=== PATIENT | male | born 2000 | race Caucasian/White ===

== ENCOUNTER 2021-01-20 12:29 | Outpatient (REF) | payer OTHER, SELFPAY | END 2021-01-20 12:30 | disposition home or self-care (01) | LOC: HO.LAB 12:29 | PROVIDERS: Visit Provider Nurse Practitioner Family | DX: J32.9 Chronic sinusitis, unspecified (principal); Z20.822 Contact with and (suspected) exposure to COVID-19 | CPT/HCPCS: U0003; U0005 ==

== ENCOUNTER → 2023-01-13 14:56 | Outpatient (BNVA) | payer SELFPAY | PROVIDERS: PCP Family Medicine; Visit Provider Internal Medicine | DX: Z02.79 Encounter for issue of other medical certificate (principal) ==

== ENCOUNTER 2023-04-04 14:49 | Outpatient (AMB) | payer OTHER, SELFPAY ==
[2023-04-04 14:52] VITALS: BP 120/70; PULSE 69; O2SAT 99; BMI 27.3
--- NOTE | 2023-04-04 14:52 | A.OFFPC_ITS ---
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 Nonsmoker, EtOH Occassional. No Drugs PFSH Medical History (Updated 04/04/23 @ 15:06 by Kaykay Hutchinson CMA) Left elbow fracture Left wrist injury Right wrist fracture Surgical History No pertinent past surgical history Family History (Updated 04/04/23 @ 14:59 by Kaykay Hutchinson CMA) Father No problems noted. Mother No problems noted. 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 1. Little interest or pleasure in doing things: not at all 2. Feeling down, depressed, or hopeless: not at all 3. Trouble falling or staying asleep, or sleeping too much: not at all 4. Feeling tired or having little energy: not at all 5. Poor appetite or overeating: not at all 6. Feeling bad about yourself - or that you are a failure or have let yourself or your family down: not at all 7. Trouble concentrating on things, such as reading the newspaper or watching television: not at all 8. Moving or speaking so slowly that other people could have noticed. Or the opposite - being so fidgety or restless that you have been moving around a lot more than usual: not at all 9. Thoughts that you would be better off or of hurting yourself in some way: not at all Total score: 0 Source: Developed by Drs. Rudolph Sandy, Rosa Silva, Claude Veronica and colleagues, with an educational kourtney from [employer]. Thrive Questionnaire Date Thrive assessed: 12/25/21 I am a: Patient What is your living situation today?: I have a steady place to live Within the past 12 months, did the food you bought not last and you didn't have the money to get more?: Never true Within the past 12 months, did you worry whether your food would run out before you got money to buy more?: Never true Do you have trouble paying for medicines?: No Do you have trouble getting transportation to medical appointments?: No Do you have trouble paying your heating and electricity bill?: No Do you have trouble taking care of your child, family member or friend?: No Do you have trouble with day-to-day activities such as bathing, preparing meals, shopping, managing finances, etc.?: No Are you currently unemployed and looking for a job?: No Are you interested in more education?: No AUDIT C Alcohol Use Questionnaire (AUDIT-C) 1. How often do you have a drink containing alcohol?: Monthly or less 2. How many drinks containing alcohol do you have on a typical day when you are drinking?: 1 or 2 3. How often do you have six or more drinks on one occasion?: Never Total Score: 1 AXEL-7 AMB Questionnaire AXEL-7 Date AXEL - 7 assessed: 04/04/23 Feeling nervous, anxious, or on edge: 0 = Not at all Not being able to stop or control worryin = Not at all Worrying too much about different things: 0 = Not at all Trouble relaxin = Not at all Being so restless that it is hard to sit still: 0 = Not at all Becoming easily annoyed or irritable: 0 = Not at all Feeling afraid as if something awful might happen: 0 = Not at all Total AXEL-7 score (0-4 normal; 5-9 mild; 10-14 moderate; 15-21 severe): 0 Source: Developed by Drs. Rudolph Sandy, Rosa Silva, Claude Veronica and colleagues, with an educational kourtney from [employer]. Review of Systems Const Denies chills, Denies fatigue, Denies fever(s), Denies headache(s) and Denies weakness Eyes Denies change in vision ENT Denies dizziness, Denies headache(s), Denies hearing loss, Denies nasal congestion, Denies sinus pain, Denies sinus pressure and Denies sore throat Card Denies chest pain, Denies lightheadedness, Denies dyspnea and Denies other (palpitations) Resp Denies cough, Denies dyspnea and Denies wheezing GI Denies abdominal pain, Denies melena, Denies hematochezia, Denies change in bowel habits, Denies dyspepsia and Denies nausea Denies hematuria and Denies dysuria Musc Denies abnormal gait, Denies myalgias, Denies arthralgias, Denies numbness and Denies tingling Skin/Breast Denies rash, Denies unusual bruising and Denies wounds Neuro Denies abnormal gait, Denies dizziness, Denies headache(s), Denies memory loss, Denies numbness, Denies Sensory deficit (Neuro), Denies tingling and Denies weakness Psych Denies anxiety, Denies depression and Denies memory loss Endo Denies cold intolerance, Denies fatigue, Denies heat intolerance, Denies polydipsia and Denies polyuria [place]iciano/Lymph Denies easy bleeding and Denies easy bruising Aller/Immun Denies wheezing Physical exam (Primary Care) Vital Signs: Last Vital Signs Pulse 69 04/04/23 14:52 BP 120/70 04/04/23 14:52 Pulse Ox 99 04/04/23 14:52 Oxygen Delivery Method Room Air 04/04/23 14:52 BMI result Body Mass Index 27.3 Tobacco/Smoking Status: Tobacco use Status Tobacco use date assessed 04/04/23 04/04/23 15:09 Patient Tobacco Use Status Never used Tobacco 04/04/23 15:09 e-Cigarette/Vaping Use Never Used 04/04/23 15:09 PHQ-9: PHQ-9 Score PHQ-9: Total score 0 04/04/23 15:09 Thrive Assessment: Date of Thrive Assessment Date Thrive assessed 12/25/21 04/04/23 15:09 Const General: no acute distress, well developed, alert and awake Nutritional Appearance: well nourished Orientation/consciousness: patient oriented x3 HENMT Head: Yes normocephalic and Yes atraumatic Ears: hearing grossly normal bilaterally and TM's normal bilaterally General nose exam: Normal external nose present and Normal nares present Mouth: Normal oral and palatal mucosa present and moist mucous membranes Teeth and gingiva: dentition normal Throat: Yes posterior oropharynx normal Eyes Pupils: Equal, round and reactive pupils present and Pupil accommodation reflex normal EOM: EOMs intact bilaterally Neck Neck: Yes normal visual inspection, Yes no lymphadenopathy and Yes trachea midline Thyroid: Thyroid normal Carotids: no bruits Lymphatic: no lymphadenopathy noted Chest Chest palpation & inspection: normal inspection of the chest Resp Effort & Inspection: normal respiratory effort Auscultation: clear to auscultation bilaterally Cardio Rate: regular rate Rhythm: regular rhythm Heart sounds: S1 normal heart sound present, S2 normal heart sound present, no gallops, no murmurs and no rubs Bruits: no abdominal aortic bruits and no carotid bruits GI Palpation (GI): No Abdominal aortic bruit present, Soft to palpation, nontender, No hepatosplenomegaly present and No Rebound tenderness present Auscultation: normal bowel sounds General: Yes no CVA tenderness Back/Spine/Pelvis Back: no CVA tenderness Cervical Spine: cervical ROM normal and No Cervical spine tenderness Thoracic/Lumbar Spine: thoraco-lumbar ROM normal, No pain with thoraco-lumbar ROM, No thoracic spinal tenderness and No lumbar spinal tenderness Skin Lesions: no lesions Rashes: no rashes Trauma: no lacerations or abrasions Wounds: no wounds Nails: normal Neuro General: patient oriented x3, gait normal and CN's II-XI intact bilaterally Cranial nerves: Yes Equal, round and reactive pupils present Cognition (Neuro): normal cognition Gait exam (Neuro): Normal gait present Motor exam (neuro): 5/5 motor strength present throughout Sensory Exam: No Sensory deficit (Neuro) Deep tendon reflexes (DTR's): Right patellar reflex intensity grade: 2+ and Left patellar reflex intensity grade: 2+ Extrem General: Yes normal to inspection and No edema Psych Appearance: grossly normal Affect: normal affect Attitude: cooperative Thought process: Normal thought process present Assessment and Plan Assessment & Plan (1) Annual physical exam: Code(s): Z00.00 - Encounter for general adult medical examination without abnormal findings Plan: 23-year-old?male?presents?for?complete?physical?exam Encouraged?healthy?diet?with?active?lifestyle?and?plenty?of?exercise Exam?all?within?normal?limits?today He?can?get?his?labs?drawn?and?we?can?follow-up?by?telephone?in?a?few?weeks Coding Level of Care Code Est Pt Prev Care 18-39y(75713) Diagnoses Annual physical exam Z00.00
== END 2023-04-04 16:09 | disposition home or self-care (01) ==
PROVIDERS: PCP Family Medicine; Visit Provider Family Medicine
DX: Z00.00 Encounter for general adult medical examination without abnormal findings (principal)
CPT/HCPCS: 99395

== ENCOUNTER 2023-04-27 07:14 | Outpatient (REF) | payer OTHER, SELFPAY ==
[2023-04-27 11:39] LABS: Appearance Urine Clear; Color Urine Yellow; Glucose Urine UA Negative (Negative); Leukocyte Esterase Urine Negative (Negative); Nitrite Urine Negative (Negative); PH 6.5 (5.0-9.0); Specific Gravity - Urine 1.025 (1.005-1.025); Urine Blood Negative (Negative); Urine Ketones Negative (Negative); Urine Protein Negative (Neg-Trace)
[2023-04-27 12:42] LABS: Creatinine Urine 160.43 mg/dL; Microalbum/Creatinine Ratio Ur 9.9 ug/mg cr (<30)
[2023-04-27 12:43] LABS: HBc Num1 0.15 S/CO (0.00-0.79); HBsAGNum1 0.53 S/CO (0.00-0.99); HIV AB/AG Nonreactive (Nonreactive); HIV Num 1 0.04 S/CO (0.00-0.99); Hepatitis B Core Antibody Nonreactive (Nonreactive); Hepatitis B Surface Antigen Negative (Negative); ~HepC Num1 0.06 S/CO (0.00-0.79); ~Hepatitis B Surface Antibody NONREACTIVE (Nonreactive); ~Hepatitis C Antibody Nonreactive (Nonreactive)
[2023-04-27 12:45] LABS: TSH reflex Free T4 1.63 uIU/mL (0.32-4.0)
[2023-04-27 12:56] LABS: Anion Gap 16 (12-20)
[2023-04-27 13:02] LABS: Alanine Aminotransferase 18 U/L (0-40); Albumin Level 4.2 g/dL (3.5-5.0); Alkaline Phosphatase 80 U/L (39-117); Aspartate Amino Transferase 23 U/L (5-37); Bilirubin Total 0.6 mg/dL (0.0-1.0); Blood Urea Nitrogen 18 mg/dL (9-16); Calcium 9.4 mg/dL (8.4-10.2); Carbon Dioxide 21 mmol/L (22-29); Chloride 106 mmol/L (96-108); Cholesterol 167 mg/dL (<200); Estimated Glomerular Filt Rate > 60; Glucose Fasting 87 mg/dL (60-99); HDL Cholesterol 39 mg/dL (>40); LDL Cholesterol Calculated 119 mg/dL (<100); Potassium 4.7 mmol/L (3.3-5.1); Sodium 138 mmol/L (135-145); Total Protein 7.6 g/dL (6.5-8.0); Triglycerides 49 mg/dL (<150)
[2023-04-27 13:07] LABS: Syphilis Screen Nonreactive (Nonreactive)
== END 2023-04-27 07:15 | disposition home or self-care (01) ==
LOC: HO.WFDLDS 07:14
PROVIDERS: Visit Provider Family Medicine
DX: Z00.00 Encounter for general adult medical examination without abnormal findings (principal); Z11.4 Encounter for screening for human immunodeficiency virus [HIV]; I10 Essential (primary) hypertension; Z20.2 Contact with and (suspected) exposure to infections with a predominantly sexual mode of transmission
CPT/HCPCS: 36415; 80053; 80061; 81003; 82043; 82570; 84443; 86704; 86706; 86780; 86803; 87340; 87389

== ENCOUNTER 2023-04-29 15:08 | Outpatient (AMB) | payer OTHER, SELFPAY ==
--- NOTE | 2023-04-29 15:03 | A.OFFPC_ITS ---
Intake Visit Reasons: f/u CPE-labs Intake Note: Patient is following up on his blood work today. Allergies No Known Allergies Allergy (Verified 04/04/23 14:56) Tobacco use date assessed: 04/29/23 HPI f/u CPE-labs HPI Details 23 y/o male presents to f/u CPE-labs via telemedicine. Labs were drawn 04/27/23. Reviewed labs with pt. Triglycerides 49. TC 167. LDL 119. HDL mildly low at 39. Pt states he is already exercising consistently. [facility] Medical History (Updated 04/29/23 @ 15:33 by Sebastián Starks) Left elbow fracture Left wrist injury Right wrist fracture Surgical History No pertinent past surgical history Family History (Updated 04/04/23 @ 14:59 by Kaykay Hutchinson CMA) Father No problems noted. Mother No problems noted. 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 Rudolph Sandy, Rosa Silva, Claude Veronica and colleagues, with an educational kourtney from [employer]. Review of Systems Const Denies chills, Denies fatigue, Denies fever(s), Denies headache(s) and Denies weakness ENT Denies dizziness and Denies headache(s) Card Denies dyspnea Resp Denies cough, Denies dyspnea, Denies wheezing and Denies other (shortness of breath) Musc Denies numbness and Denies tingling Neuro Denies dizziness, Denies headache(s), Denies numbness, Denies tingling and Denies weakness Psych Denies anxiety and Denies depression Endo Denies fatigue Aller/Immun Denies wheezing Physical exam (Primary Care) Tobacco/Smoking Status: Tobacco use Status Tobacco use date assessed 04/29/23 04/29/23 15:07 Patient Tobacco Use Status Never used Tobacco 04/29/23 15:04 e-Cigarette/Vaping Use Never Used 04/29/23 15:04 Thrive Assessment: Date of Thrive Assessment Date Thrive assessed 12/25/21 04/29/23 15:04 Telehealth Telehealth Location of provider rendering services: practice address Location of patient: address on file Patient Identification confirmed using: Name, : Yes Telehealth method: voice only Patient verbally consented to treatment: Yes Patient verbally consented to billing insurance company: Yes Patient informed of any privacy concerns related to visit: Yes Minutes spent on Phone/Video with Pt.: 6 Assessment and Plan Assessment & Plan (1) Low HDL (under 40): Code(s): E78.6 - Lipoprotein deficiency Plan: Mildly?low?HDL. Patient?is?already?exercising?very?consistently.??Encouraged?him?to?continue?thi s Also?encouraged?a?diet?high?in?[place]?3?fatty?acids Orders: Orders Comprehensive [place]. Panel Fast 9 Months Z00.00 - Encounter for general adult medical examination without abnormal findings Lipid Panel 9 Months E78.6 - Lipoprotein deficiency, Z00.00 - Encounter for general adult medical examination without abnormal findings TSH reflex Free T4 9 Months Z00.00 - Encounter for general adult medical examination without abnormal findings UA and rflx microscopic 9 Months Z00.00 - Encounter for general adult medical examination without abnormal findings CT NG by PCR 9 Months Z11.3 - Encounter for screening for infections with a predominantly sexual mode of transmission Microalbumin, Random (w Creat) 9 Months I10 - Essential (primary) hypertension Coding Level of Care Code Tele Est Pt Level 2 (92075) Diagnoses Low HDL (under 40) E78.6
== END 2023-04-29 16:45 ==
LOC: HO.HMGFM 15:08
PROVIDERS: PCP Family Medicine; Visit Provider Family Medicine
DX: E78.6 Lipoprotein deficiency (principal)
CPT/HCPCS: 99212

== ENCOUNTER 2024-10-09 07:54 | Outpatient (AMB) | payer OTHER, SELFPAY ==
--- OUTSIDE RECORDS SUMMARY | 2024-10-09 07:56 | XMS_ITS | Patient Health Record ---
[facility] Organization [facility] Address [address] [place] [address] Care Team Providers Care Associate Property Manager Name Role Phone [facility] Primary Care Provider Unavailab Bee Owen Unavailable [phone] Allergies No Known Allergies Reason For Referral No Information Medications Medication SIG (Take, Route, Frequency, Duration) Notes Start Date End Date Status Clotrimazole-Betamethasone 1-0.05 % 1 application to affected area Externally Twice a day to affected areas on feet for 30 days 03/10/2022 Active Social History Tobacco Use: Social History Observation Description Date Details (start date - stop date) Never Smoker NA - NA Tobacco Use/Smoking Question Answer Notes Are you a: nonsmoker Additional Findings: Tobacco Non-User Current no n-smoker Alcohol Screen Question Answer Notes Did you have a drink containing alcohol in the p ast year? No Points 0 Interpretation Negative Tobacco use other than smoking: Question Answer Notes Are you an other tobacco user? No Plan Of Treatment No Information Insurance Providers Payer Name Payer Address Payer Phone Subscriber Number Group Number Insured Name Patient Relationship to Insured Coverage Start Date Coverage End Date [facility] [address] [place] [place] [id number] [phone] [id number] Yeyo Chavez Child - Insured has Financial Responsibility Medical (General) History Medical History History ICD Code covid-19 Vertigo Surgical History Surgery Date(Month/Year)
--- NOTE | 2024-10-09 08:02 | AM.OFFWIN_ITS ---
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 Started Tuesday AM This has happened in the past Wonders if acid reflux Taking TUMs but w/o effect. Pain does not radiate + sob when rising this AM Describes as tightness. Comes and goes. No pain w/ activity. Went for run yesterday and had no problems Pain is worse when laying or sitting Denies preceding URI sx. Normal bowel and bladder No food triggers Drinks lemonade a lot Dad has acid reflux Denies any injury, n/v. Denies sig family hx of cardiac dz Denies fever, chills. No asthma No anxiety Exam: Awake alert NAD Scleras nonicteric No costochondral chest pain, Chest normal to inspection RRR LS CTAB No edema BLE Plan EKG today sinus [place], otherwise WNL EKG done in the office today and reassuring. The plan will be to start on omeprazole 20 mg daily. Advised to take 1st thing in the morning on an empty stomach. No food or drinks for 30 minutes. If unable to do this okay to take at bedtime. educated on reasons to seek emergency room care. advised for him to follow up with primary care provider in 4-6 weeks to ensure resolution. Total time spent caring for the patient today was 40 minutes. This includes time spent before the visit reviewing the chart, time spent during the visit, and time spent after the visit on documentation, reviewing laboratory results, diagnostic imaging, medications, performing a medically necessary evaluation, counseling on diagnoses, care coordination, ordering appropriate tests, ordering appropriate medications, review of tests performed by other providers, reporting test results with the patient, communication with other healthcare providers. [facility] Medical History (Updated 10/09/24 @ 08:48 by RONI SewellFORMERLY [facility]) Left elbow fracture Left wrist injury Right wrist fracture Surgical History No pertinent past surgical history Family History (Updated 04/04/23 @ 14:59 by Kaykay Hutchinson CMA) Father No problems noted. Mother No problems noted. 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 Cognitive needs: No Hearing needs: No Vision needs: No Physical Exam Vital Signs: Last Vital Signs Temp 97.4 F 10/09/24 08:04 Pulse 61 10/09/24 08:04 Resp 12 10/09/24 08:04 BP 117/68 10/09/24 08:04 Pulse Ox 99 10/09/24 08:04 Oxygen Delivery Method Room Air 10/09/24 08:04 BMI result Body Mass Index 28.7 Office Procedures EKG [id number], Complete Assessment & Plan Assessment & Plan (1) Non-cardiac chest pain: Code(s): R07.89 - Other chest pain (2) GERD (gastroesophageal reflux disease): Code(s): K21.9 - Gastro-esophageal reflux disease without esophagitis Qualifiers: Esophagitis presence: without esophagitis Qualified Code(s): K21.9 - Gastro-esophageal reflux disease without esophagitis (3) Family history of GERD: Code(s): Z83.79 - Family history of other diseases of the digestive system Plan . Medications: New omeprazole 20 mg PO DAILY 30 caps 1RF Coding Level of Care Code Est Pt Level 5 (85044) Diagnoses Non-cardiac chest pain R07.89 Gastroesophageal reflux disease without esophagitis K21.9 Esophagitis presence: without esophagitis Family history of GERD Z83.79 CPT Codes EKG - CPT: 75827-[id number], Complete ([id number])
[2024-10-09 08:04] VITALS: BP 117/68; PULSE 61; RESP 12; TEMP 36.3; O2SAT 99; BMI 28.7
== END 2024-10-09 08:47 | disposition home or self-care (01) ==
LOC: HO.HMCWIW 07:54
PROVIDERS: PCP Family Medicine; Visit Provider Nurse Practitioner Family
DX: R07.89 Other chest pain (principal); K21.9 Gastro-esophageal reflux disease without esophagitis; Z83.79 Family history of other diseases of the digestive system

== ENCOUNTER → 2024-10-09 07:54 | Outpatient (BNVA) | payer OTHER, SELFPAY | PROVIDERS: PCP Family Medicine; Visit Provider Nurse Practitioner Family | DX: R07.89 Other chest pain (principal); K21.9 Gastro-esophageal reflux disease without esophagitis; Z83.79 Family history of other diseases of the digestive system | CPT/HCPCS: 93005 ==

== ENCOUNTER 2025-01-07 15:06 | Outpatient (AMB) | payer OTHER, SELFPAY ==
--- NOTE | 2025-01-07 15:10 | MHC.PC.OV ---
Vital Signs 01/07/25 15:13 Height 6 ft Weight 208 lb BMI 28.2 BP 106/64 Blood Pressure Location Rt brachial Position Sitting Pulse 63 Pulse Source Pulse Oximeter Temp 97.2 F Temp Source Temporal Artery Scan Pulse Oximetry (%) 97 Oxygen Delivery Method Room Air Intake Visit Reasons: cpe Intake Note: Fredrick presents in the office today for his annual physical. Allergies No Known Allergies Allergy (Verified 01/07/25 15:12) Tobacco use date assessed: 01/07/25 Dental Screening Dental Screen Date: 01/07/25 Did you have a dental visit in the last 12 months?: Yes Did you have a dental problem in the last 6 months where you did not have access to dental care?: No Was dental information given to patient?: Patient has dentist HPI HPI Comments History of Present Illness Details This is a 24 year old male presenting for his physical exam. 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 He sees [facility] for vitiligo. He says they recently prescribed a medication for hair loss, possibly minoxidil. He's agreeable to routine labs including test for STIs. He will schedule an eye exam. UTD with the dentist. We reviewed vaccines. He reports having tetanus immunization within the past ten years. He has no concerns today. ROS: Constitutional: No unexplained weight loss, fever, chills, fatigue or night sweats. Eyes: No vision changes, blurry vision, double vision, eye pain, eye redness, eye discharge. ENT: No hearing loss, sneezing, congestion, runny nose or sore throat. Respiratory: No shortness of breath, cough or sputum production. Cardiovascular: No chest pain, chest pressure or chest discomfort. No palpitations or pedal edema. Gastrointestinal: No anorexia, nausea, vomiting or diarrhea. No abdominal pain or blood in stool. Genitourinary: No dysuria, hematuria, urinary frequency. Neurologic: No headache, dizziness, syncope, unilateral weakness, ataxia, numbness or tingling in the extremities. Musculoskeletal: No muscle pain, back pain, joint pain or swelling. Hematologic/Lymphatics: No bleeding or bruising. No painful lymph nodes. Skin: Vitiligo Endocrine: No cold or heat intolerance. No polyuria or polydipsia. Psychiatric: No depression or anxiety. No SI/HI. Physical exam: Constitutional: Alert, in no distress. Head: Normocephalic. Eyes: Pupils are equal, round and reactive to light. Extraocular muscles intact. Ear, Nose and Throat: Canals clear. TMs normal. Normal nasal mucosa. No nasal discharge. No oral lesions. Neck: Supple, Full range of motion. No lymphadenopathy. No palpable thyroid masses. Respiratory: Clear to auscultation. Cardiovascular: S1 S2 regular. No murmurs. Gastrointestinal: Abdomen soft, non-tender, non-distended. Normal bowel sounds. No palpable masses. Genitourinary: Patient declined exam. Neurologic: No focal neurological deficits. Symmetric patellar reflexes. Moves all extremities spontaneously. Sensation intact bilaterally. Musculoskeletal: No gross deformities. Normal range of motion. Extremities: Warm and well perfused. No clubbing, cyanosis or edema. Psychiatric: Normal mood and affect [facility] Medical History (Updated 01/07/25 @ 20:47 by SHAI Hope) Vitiligo Screening for cardiovascular condition Routine physical examination Left elbow fracture Left wrist injury Right wrist fracture Surgical History No pertinent past surgical history Family History Father No problems noted. Mother No problems noted. 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 1. Little interest or pleasure in doing things: not at all 2. Feeling down, depressed, or hopeless: not at all 3. Trouble falling or staying asleep, or sleeping too much: not at all 4. Feeling tired or having little energy: not at all 5. Poor appetite or overeating: not at all 6. Feeling bad about yourself - or that you are a failure or have let yourself or your family down: not at all 7. Trouble concentrating on things, such as reading the newspaper or watching television: not at all 8. Moving or speaking so slowly that other people could have noticed. Or the opposite - being so fidgety or restless that you have been moving around a lot more than usual: not at all 9. Thoughts that you would be better off or of hurting yourself in some way: not at all Total score: 0 Depression Screening Interpretation: Negative Depression Screening Done: Yes 39836 - PHQ-9 Billing: Yes Source: Developed by Drs. Rudolph Sandy, Rosa Silva, Claude Veronica and colleagues, with an educational kourtney from [employer]. Thrive Questionnaire Date Thrive assessed: 01/07/25 I am a: Patient What is your living situation today?: I have a steady place to live Within the past 12 months, did the food you bought not last and you didn't have the money to get more?: Never true Within the past 12 months, did you worry whether your food would run out before you got money to buy more?: Never true Do you have trouble paying for medicines?: No Do you have trouble getting transportation to medical appointments?: No Do you have trouble paying your heating and electricity bill?: No Do you have trouble taking care of your child, family member or friend?: No Do you have trouble with day-to-day activities such as bathing, preparing meals, shopping, managing finances, etc.?: No Are you currently unemployed and looking for a job?: No Are you interested in more education?: No Please select the resources that you would like help with: None Currently or been in a relationship where the following occur: No concerns reported THRIVE Score: 0 AUDIT C Alcohol Use Questionnaire (AUDIT-C) 1. How often do you have a drink containing alcohol?: Monthly or less 2. How many drinks containing alcohol do you have on a typical day when you are drinking?: 3 or 4 3. How often do you have six or more drinks on one occasion?: Less than monthly Total Score: 3 AXEL-7 AMB Questionnaire AXEL-7 Date AXEL - 7 assessed: 01/07/25 Feeling nervous, anxious, or on edge: 0 = Not at all Not being able to stop or control worryin = Not at all Worrying too much about different things: 0 = Not at all Trouble relaxin = Not at all Being so restless that it is hard to sit still: 0 = Not at all Becoming easily annoyed or irritable: 0 = Not at all Feeling afraid as if something awful might happen: 0 = Not at all Total AXEL-7 score (0-4 normal; 5-9 mild; 10-14 moderate; 15-21 severe): 0 Source: Developed by Drs. Rudolph Sandy, Rosa Silva, Claude Veronica and colleagues, with an educational kourtney from [employer]. AXEL-7 Assessment Billing AXEL-7 Assessment Tool: AXEL-7 Assessment 01632 Physical exam (Primary Care) Vital Signs: Last Vital Signs Temp 97.2 F 01/07/25 15:13 Pulse 63 01/07/25 15:13 BP 106/64 01/07/25 15:13 Pulse Ox 97 01/07/25 15:13 Oxygen Delivery Method Room Air 01/07/25 15:13 BMI result Body Mass Index 28.2 Tobacco/Smoking Status: Tobacco use Status Tobacco use date assessed 01/07/25 01/07/25 15:17 Patient Tobacco Use Status Never used Tobacco 01/07/25 15:17 e-Cigarette/Vaping Use Never Used 01/07/25 15:17 PHQ-9: PHQ-9 Score PHQ-9: Total score 0 01/07/25 15:37 Depression Screening Interpretation: Negative Thrive Assessment: Date of Thrive Assessment Date Thrive assessed 01/07/25 01/07/25 15:17 Currently or been in a relationship where the following occur: No concerns reported Coding Level of Care Code Est Pt Prev Care 18-39y(38016) Diagnoses Routine physical examination Z00.00 Screening for cardiovascular condition Z13.6 Additional Codes AXEL-7 Assessment Billing - AXEL-7 Assessment Tool: AXEL-7 Assessment 63526 ([id number]) PHQ-9 - 97352 - PHQ-9 Billing: Yes ([id number]) Assessment & Plan Assessment & Plan (1) Routine physical examination: Code(s): Z00.00 - Encounter for general adult medical examination without abnormal findings Category: Medical Plan: Patient is seen today for a routine physical. As part of this visit we reviewed the following issues, which are considered and essential part of preventative health in this age group: - Testicular cancer screening, which includes self exam teaching - Blood pressure screening - Cholesterol screening - Nutritional and exercise counseling - Counseling of injury prevention including fire prevention, smoke alarms and seat belt usage - Screening for depression - Prevention of and/or testing for infectious diseases - Education about skin cancer - Recommendations about immunizations - Recommendation of an eye exam - Screening for substance abuse (2) Screening for cardiovascular condition: Code(s): Z13.6 - Encounter for screening for cardiovascular disorders Category: Medical Plan Schedule physical exam in 1 year. Orders: Orders Lipid Panel Today Z00.00 - Encounter for general adult medical examination without abnormal findings, Z13.6 - Encounter for screening for cardiovascular disorders Hepatitis C Antibody Today Z00.00 - Encounter for general adult medical examination without abnormal findings, Z13.6 - Encounter for screening for cardiovascular disorders, Z20.2 - Contact with and (suspected) exposure to infections with a predominantly sexual mode of transmission HIV Ab/Ag Today Z00.00 - Encounter for general adult medical examination without abnormal findings, Z13.6 - Encounter for screening for cardiovascular disorders, Z20.2 - Contact with and (suspected) exposure to infections with a predominantly sexual mode of transmission Syphilis Screen Today Z00.00 - Encounter for general adult medical examination without abnormal findings, Z13.6 - Encounter for screening for cardiovascular disorders, Z20.2 - Contact with and (suspected) exposure to infections with a predominantly sexual mode of transmission TSH reflex Free T4 Today Z00.00 - Encounter for general adult medical examination without abnormal findings, Z13.6 - Encounter for screening for cardiovascular disorders Complete Blood Count no Diff Today Z00.00 - Encounter for general adult medical examination without abnormal findings, Z13.6 - Encounter for screening for cardiovascular disorders Comprehensive Met. Panel Today Z00.00 - Encounter for general adult medical examination without abnormal findings, Z13.6 - Encounter for screening for cardiovascular disorders
[2025-01-07 15:13] VITALS: BP 106/64; PULSE 63; TEMP 36.2; O2SAT 97; BMI 28.2
--- OUTSIDE RECORDS SUMMARY | 2025-01-07 15:31 | XMS_ITS | Patient Health Record ---
Author Organization [facility] Address [address] [place] [address] Care Team Providers Care Illuminator Name Role Phone Liu Rocha Primary Care Provider Unavailab Bee Owen Unavailable [phone] Allergies No Known Allergies Reason For Referral No Information Medications Medication SIG (Take, Route, Frequency, Duration) Notes Start Date End Date Status Clotrimazole-Betamethasone 1-0.05 % 1 application to affected area Externally Twice a day to affected areas on feet; Duration: 30 days 03/10/2022 Active Social History Tobacco [...] Insured Coverage Start Date Coverage End Date [facility] [address] [place] [address] [phone] [id number] Yeyo Chavez Child - Insured has Financial Responsibility Medical (General) History Medical History History ICD Code covid-19 Vertigo Surgical History Surgery Date(Month/Year)
== END 2025-01-07 15:46 | disposition home or self-care (01) ==
LOC: HO.HMCFM 15:07
PROVIDERS: PCP Family Medicine; Visit Provider Physician Assistant Medical
DX: Z00.00 Encounter for general adult medical examination without abnormal findings (principal); Z13.6 Encounter for screening for cardiovascular disorders

== ENCOUNTER → 2025-01-07 15:06 | Outpatient (BNVA) | payer OTHER, SELFPAY | PROVIDERS: PCP Family Medicine; Visit Provider Physician Assistant Medical | DX: Z00.00 Encounter for general adult medical examination without abnormal findings (principal); Z13.30 Encounter for screening examination for mental health and behavioral disorders, unspecified; Z13.31 Encounter for screening for depression | CPT/HCPCS: 96127 ==

== ENCOUNTER → 2025-01-10 15:00 | Outpatient (BNVA) | payer SELFPAY | PROVIDERS: PCP Family Medicine; Visit Provider Physician Assistant | DX: Z02.79 Encounter for issue of other medical certificate (principal) ==